=== PATIENT | female | born 1970 | race Caucasian/White ===

== ENCOUNTER → 2018-02-19 | Outpatient (CLI) | payer OTHER ==
[2016-08-17 21:25] VITALS: BP 120/83
[~2018-02-19] MED LIST: HYDR-79 PO; MAGN2400 PO; ONDA8TAB12 PO
--- NOTE | 2018-02-19 14:25 | RAD ---
EXAM: Maxillofacial bone CT without contrast. HISTORY: Sinusitis. TECHNIQUE: Computed tomographic images of the maxillofacial bones were obtained without contrast. *One or more of the following individualized dose reduction techniques were utilized for this examination: 1. Automated exposure control. 2. Adjustment of the mA and/or kV according to patient size. 3. Use of iterative reconstruction technique. COMPARISON: None. FINDINGS: There is decreased right maxillary sinus size with sinus wall thickening due to the sequela of chronic sinusitis. There is no sinus opacification or air-fluid level. There is severe attenuation of the right ostiomeatal unit. There is no significant nasal septal deviation. The orbits and mastoid air cells are unremarkable. The visualized portions of the brain and calvarium are unremarkable. IMPRESSION: 1. Decreased right maxillary sinus size with wall thickening due to the sequela of chronic sinusitis. 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 There is severe attenuation of the right ostiomeatal unit. 2. No evidence of acute sinusitis. Electronically signed by: Geraldine Tamayo MD (02/19/2018 2:22 PM) [id number]
== END | disposition home or self-care (01) ==
LOC: CT 12:34
PROVIDERS: ATTEND Otolaryngology
DX: J32.0 Chronic maxillary sinusitis (principal); E03.9 Hypothyroidism, unspecified; Z90.49 Acquired absence of other specified parts of digestive tract
CPT/HCPCS: 70486

== ENCOUNTER → 2018-04-06 | Outpatient (CLI) | payer OTHER ==
[2016-08-17 21:25] VITALS: BP 120/83
--- NOTE | 2018-04-07 08:47 | RAD ---
CT of the paranasal sinuses without contrast, 04/06/2018: HISTORY: Chronic sinusitis, previous surgery Noncontrast scans were obtained with multiplanar reconstructions produced. Comparison is made to a study from 02/19/2018. The right maxillary sinus is small with thickening of its bony stevens as noted on the previous study. There is mild mucosal thickening involving the right ostiomeatal complex. The ethmoid infundibulum is patent. The other paranasal sinuses are unremarkable. No free fluid is present in the sinuses. The orbital contents are unremarkable. IMPRESSION: 1. Small right maxillary sinus as noted on the previous study. 2. Mild mucosal thickening involving the right ostiomeatal complex. 3. No CT evidence of acute sinusitis. PQRS Compliance Statement: One or more of the following individualized dose reduction techniques were utilized for this examination: 1. Automated exposure control 2. Adjustment of the mA and/or kV according to patient size 3. Use of iterative reconstruction technique . Electronically signed by: Brody Yoon MD (04/07/2018 8:44 AM) [facility]
== END | disposition home or self-care (01) ==
LOC: CT 16:30
PROVIDERS: ATTEND Otolaryngology
DX: J32.0 Chronic maxillary sinusitis (principal)
CPT/HCPCS: 70486

== ENCOUNTER 2018-08-12 10:31 | Emergency (ER) | payer OTHER ==
[~2018-08-12] VITALS: Ht 165.1 cm; Wt 77.0 kg
[2018-08-12 10:59] LABS: BASO # 0.1 x10^3/uL (0.0-0.2); BASO % 1 % (0-3); EOS # 0.1 x10^3/uL (0.0-0.7); EOS % 1 % (0-3); HEMATOCRIT 45.1 % (36.0-47.0); HEMOGLOBIN 15.4 g/dL (12.0-15.5); LYMPH # 2.2 x10^3/uL (1.0-4.8); LYMPH % 31 % (24-48); MEAN CORPUSCULAR HEMOGLOBIN 31 pg (25-35); MEAN CORPUSCULAR HGB CONC 34 g/dL (31-37); MEAN CORPUSCULAR VOLUME 91 fL (79-100); MONO # 0.3 x10^3/uL (0.0-1.1); MONO % 5 % (0-9); NEUT # 4.4 x10^3uL (1.8-7.7); NEUT % 62 % (31-73); PLATELET COUNT 356 x10^3/uL (140-400); RED BLOOD COUNT 4.95 x10^6/uL (3.50-5.40); RED CELL DISTRIBUTION WIDTH 13.2 % (11.5-14.5); WHITE BLOOD COUNT 7.1 x10^3/uL (4.0-11.0)
--- NOTE | 2018-08-12 11:08 | PHYS DOC ---
Past History Past Medical History: Hypothyroid, Migraines Past Surgical History: Appendectomy, Cholecystectomy, Hysterectomy, Other Alcohol Use: None Drug Use: None Adult General Chief Complaint Chief Complaint: CHEST PAIN HPI HPI 48-year-old female presents with left-sided chest pain that she describes as a pressure. 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 She then had to go to a couple of meetings about the colleague there were also emotionally stressful. She admits to some shortness of breath with exertion after one flight of stairs. She states that this is abnormal for her. She was recently in [employer] a couple of weeks ago walking several miles a day without difficulty. She denies diaphoresis. She has had some nausea and a mild headache. The pain was an 8 out of 10 at its worst. It is currently 7 out of 10. She has not taken an aspirin. Patient has no cardiac history. She has had EKGs with her annual physicals which have been reported to be negative. She has not had a stress test or cardiac catheter. She does not have family history of heart attacks under the age of 50. She denies fever or chills. Review of Systems Review of Systems Constitutional: Denies fever or chills [] Eyes: Denies change in visual acuity, redness, or eye pain [] HENT: Denies nasal congestion or sore throat [] Respiratory: Shortness of breath [] Cardiovascular: No additional information not addressed in HPI [] GI: Nausea. Denies abdominal pain, vomiting, bloody stools or diarrhea [] : Denies dysuria or hematuria [] Musculoskeletal: Denies back pain or joint pain [] Integument: Denies rash or skin lesions [] Neurologic: Headache [] Endocrine: Denies polyuria or polydipsia [] All other systems were reviewed and found to be within normal limits, except as documented in this note. Current Medications Current Medications Current Medications Medications (Trade) Dose Ordered Sig/[place] Start Time Stop Time Status Last Admin Dose Admin Aspirin (Children'S Aspirin) 324 mg 1X ONCE 08/12/18 11:20 08/12/18 11:21 08/12/18 11:02 324 MG Allergies Allergies Allergies Coded Allergies Type Severity Reaction Last Updated Verified No Known Allergies Allergy Unknown 09/24/15 Yes Physical Exam Physical Exam Constitutional: Well developed, well nourished, no acute distress, non-toxic appearance. [] HENT: Normocephalic, atraumatic, bilateral external ears normal, oropharynx moist, no oral exudates, nose normal. [] Eyes: PERRLA, EOMI, conjunctiva normal, no discharge. [] Neck: Normal range of motion, no tenderness, supple, no stridor. [] Cardiovascular:Heart rate regular rhythm, no murmur [] Lungs & Thorax: Bilateral breath sounds clear to auscultation [] Abdomen: Bowel sounds normal, soft, no tenderness, no masses, no pulsatile masses. [] Skin: Warm, dry, no erythema, no rash. [] Back: No tenderness, no CVA tenderness. [] Extremities: No tenderness, no cyanosis, no clubbing, ROM intact, no edema. [] Neurologic: Alert and oriented X 3, normal motor function, normal sensory function, no focal deficits noted. [] Psychologic: Affect normal, judgement normal, mood normal. [] Current Patient Data Vital Signs Vital Signs Date Time Temp Pulse Resp B/P (MAP) Pulse Ox O2 Delivery O2 Flow Rate FiO2 08/12/18 10:55 98.2 68 18 98 Room Air Lab Results Laboratory Tests Test 08/12/18 10:38 White Blood Count 7.1 x10^3/uL (4.0-11.0) Red Blood Count 4.95 x10^6/uL (3.50-5.40) Hemoglobin 15.4 g/dL (12.0-15.5) Hematocrit 45.1 % (36.0-47.0) Mean Corpuscular Volume 91 fL (79-100) Mean Corpuscular Hemoglobin 31 pg (25-35) Mean Corpuscular Hemoglobin Concent 34 g/dL (31-37) Red Cell Distribution Width 13.2 % (11.5-14.5) Platelet Count 356 x10^3/uL (140-400) Neutrophils (%) (Auto) 62 % (31-73) Lymphocytes (%) (Auto) 31 % (24-48) Monocytes (%) (Auto) 5 % (0-9) Eosinophils (%) (Auto) 1 % (0-3) Basophils (%) (Auto) 1 % (0-3) Neutrophils # (Auto) 4.4 x10^3uL (1.8-7.7) Lymphocytes # (Auto) 2.2 x10^3/uL (1.0-4.8) Monocytes # (Auto) 0.3 x10^3/uL (0.0-1.1) Eosinophils # (Auto) 0.1 x10^3/uL (0.0-0.7) Basophils # (Auto) 0.1 x10^3/uL (0.0-0.2) EKG EKG Sinus rhythm, rate 65, normal axis, no ST elevations or depressions.[] Radiology/Procedures Radiology/Procedures [] Impressions: Portable chest, 08/12/2018: HISTORY: Chest pain The heart size and pulmonary vascularity are normal. No pulmonary infiltrate is seen. There is no evidence of pleural fluid IMPRESSION: No acute cardiopulmonary abnormality is detected. Electronically signed by: Maria Antonia Yoon MD (08/12/2018 11:19 AM) [facility] DICTATED AND SIGNED BY: MARIA ANTONIA YOON MD DATE: 08/12/18 1119 CC: HOPE CORONA DO; RAMIRO FLORES DO Course & Med Decision Making Course & Med Decision Making Pertinent Labs and Imaging studies reviewed. (See chart for details) The patient was given 324mg baby aspirin on arrival. Patient's labs are unremarkable. Her troponin is negative. Her EKG is unremarkable. Her chest x- ray is unremarkable. I have given the patient 1 L normal saline, 10 mg Reglan, 25 mg of Benadryl, and 30 mg of Toradol for her headache. The patient's headache is improved, her nausea is gone, her chest pain is resolved. The patient's troponin was not drawn 6 hours after the start of her pain, but I do not believe cardiac causes the most likely cause of her symptoms. I have offered to the patient observation admission for repeat troponins or she could go home. If her symptoms return, she will come back to the emergency room. The patient has elected to go home at this time. She is stable for discharge at this time. [] Dragon Disclaimer Dragon Disclaimer This electronic medical record was generated, in whole or in part, using a voice recognition dictation system. Departure Departure: Referrals: RAMIRO FLORES DO (PCP) HOPE CORONA DO Aug 12, 2018 11:08
[2018-08-12 11:16] LABS: ALBUMIN 4.2 g/dL (3.4-5.0); ALBUMIN/GLOBULIN RATIO 1.4 (1.0-1.7); CALCIUM 9.2 mg/dL (8.5-10.1); CREATININE 0.8 mg/dL (0.6-1.0); GFR 76.2; POTASSIUM 3.7 mmol/L (3.5-5.1); TOTAL BILIRUBIN 0.3 mg/dL (0.2-1.0); TOTAL PROTEIN 7.3 g/dL (6.4-8.2)
[2018-08-12] MEDS ORDERED: ASPIRIN 81 MG TAB.CHEW PO ONE (11:20)
--- NOTE | 2018-08-12 11:20 | EKG ---
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
--- NOTE | 2018-08-12 11:22 | RAD ---
Portable chest, 08/12/2018: HISTORY: Chest pain The heart size and pulmonary vascularity are normal. No pulmonary infiltrate is seen. There is no evidence of pleural fluid IMPRESSION: No acute cardiopulmonary abnormality is detected. Electronically signed by: Brody Yoon MD (08/12/2018 11:19 AM) [facility]
[2018-08-12] MEDS ORDERED: IV NORMAL SALINE 1,000ML 1,000 ML IV ONE (11:45)
[2018-08-12] MEDS ORDERED: METOCLOPRAMIDE HCL 10 MG/2 ML VIAL. IV ONE (12:10)
[2018-08-12] MEDS ORDERED: KETOROLAC 30 MG/ML VIAL. IV ONE (12:10)
[2018-08-12] MEDS ORDERED: diphenhydrAMINE 50 MG/ML VIAL IVP ONE (12:10)
[2018-08-12 13:10] VITALS: BP 124/76
== END 2018-08-12 13:11 | disposition home or self-care (01) ==
LOC: ER 10:31
DX: R07.89 Other chest pain (principal); R51 Headache; R06.02 Shortness of breath; R11.0 Nausea; E03.9 Hypothyroidism, unspecified; G43.909 Migraine, unspecified, not intractable, without status migrainosus
CPT/HCPCS: 36415; 71045; 80053; 84484; 85025; 93005; 96374; 96375; 99285; J1200; J1885; J2765; J7030